=== PATIENT | female | born 1970 | race Two or more races ===

== ENCOUNTER 2018-09-02 11:02 | Inpatient (IN) | payer OTHER ==
[2018-09-02] MEDS ORDERED: D50W 25 GM/50 ML SYR IVP PRN (13:58)
--- NOTE | 2018-09-02 16:31 | GHP ---
POST ADMISSION PHYSICIAN EVALUATION AND REHABILITATION TREATMENT PLAN DATE OF ADMISSION: 09/02/2018 DATE OF EVALUATION: 08/21/2018 TIME OF EVALUATION: 1430 REFERRING FACILITY: [facility] REFERRING PHYSICIAN: Dr. Sean Martines CONSULTING PHYSICIANS: I believe there was consultation with the hospitalist service and with the diabetes management service. REHABILITATION DIAGNOSIS: Debility, status post subarachnoid hemorrhage. IMPAIRMENT GROUP: 1.9 ETIOLOGIC DIAGNOSIS: Other stroke. DATE OF ONSET: 08/09/2018 DATE OF SURGERY: 08/10/2018 HISTORY OF PRESENT ILLNESS: This patient was admitted to [facility] on 08/09/2018, with a severe headache and nausea. Head CT showed a subarachnoid hemorrhage consistent with a ruptured anterior communicating artery aneurysm. She underwent a left pterional craniotomy and had clip ligation of the aneurysm. She required an endoventricular drain on 07/2018, which was subsequently removed. Hospital course was complicated by mild cerebrovascular spasm, which did not require intervention. She had aspiration pneumonia and acute respiratory failure. She had Clostridium difficile diarrhea and was treated with vancomycin with resolution of symptoms. There was a left upper extremity DVT due to a PICC line and she had a new diagnosis of diabetes mellitus, type 2. STUDIES AND LABS IN THE HOSPITAL: I do not have a comprehensive list. Most recent labs to which I have access were as follows: CBC on 09/01/2018, showed mild anemia with a hemoglobin of 11.5, hematocrit was normal at 35.7, white blood cell count and platelet counts were normal. Basic metabolic profile on the same date was normal, though her creatinine was low at 0.41. Magnesium on 09/01/2018, was normal at 1.6. Phosphorus was normal at 4.5. Prothrombin time was normal at 12.8 with an INR of 1. PTT was normal at 32.3. Hemoglobin A1c was determined during the course of her hospitalization and was 13.3. PRECAUTIONS: She is a fall risk and she has aspiration and seizure precautions. ACTIVE COMORBIDITIES: She has the tier 2 comorbidity of C difficile, though has been treated. She has the tier 3 comorbidities of morbid obesity and diabetes mellitus. PAST MEDICAL HISTORY: 1. Kidney stone. 2. Lung nodule. 3. UTI. 4. Herpes labialis. 5. Diabetes mellitus, type 2. PAST SURGICAL HISTORY: She has had a section and a bronchoscopy. PRE-HOSPITAL MEDICATIONS: I do not have a list. She was remotely taking metformin. ADMISSION MEDICATIONS: 1. Acetaminophen 650 mg p.o. q.6 hours p.r.n. 2. Atorvastatin 40 mg p.o. daily. 3. Insulin sliding scale. 4. Insulin NPH 15 units twice daily with meals. 5. Levetiracetam 1000 mg p.o. twice daily. 6. Metformin 500 mg p.o. twice daily with meals. ALLERGIES: There are no known drug allergies. PSYCHOSOCIAL HISTORY: She lives with her son. There are no steps to enter. She is a nonsmoker and has used occasional alcohol. 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 FAMILY HISTORY: Noncontributory. REVIEW OF SYSTEMS: She denies difficulty swallowing; vision changes; numbness, tingling or weakness of the extremities; or headache. She denies cough or dyspnea. She denies nausea, vomiting, constipation, or diarrhea. She had diarrhea, which has resolved. She denies dysuria or urinary frequency. She denies joint pain or joint swelling. She denies skin rash or skin breakdown. Otherwise, a 10-point review of systems is negative. PHYSICAL EXAMINATION: VITAL SIGNS: Blood pressure is 98/70, heart rate is 112 , respiratory rate is 16, oxygen saturation is 96% on room air, temperature is 36.5 degrees centigrade. Her weight is 72.8 kg for a body mass index of 34.7. GENERAL: This is an obese woman sitting up in a chair, cooperative and in no acute distress. HEENT: Extraocular movements are intact. Pupils are equal, round, and reactive to light. Mucous membranes are moist. Dentition is in good condition. She has a crowded airway, Mallampati class 4. NECK: Supple. HEART: She is mildly tachycardic. There is a regular rate and rhythm with no murmurs, rubs, or gallops. LUNGS: Clear to auscultation bilaterally. ABDOMEN : Soft, nontender, nondistended with normoactive bowel sounds and no hepatosplenomegaly. EXTREMITIES: There is no cyanosis, clubbing, or edema. NEUROLOGIC: She is alert and oriented x3. She appears to have normal language function. Cranial nerves 2-12 are grossly intact. There is no focal weakness. Sensation is intact to light touch. Deep tendon reflexes are 2+ bilaterally at the biceps, patellar, and Achilles tendons. There is no pronator drift. [id number] testing is normal. CURRENT LEVEL OF FUNCTION PER THE PREADMISSION SCREEN: Regarding diet, feeding , and swallowing, she was on a regular diet with thin liquids. She was taking single bites with a slow rate and was assessed to have mild dysphagia. Grooming was done standby assist. Dressing upper body required standby assist and lower body required minimal assist. Toileting required standby assist. Bed mobility required standby assist with the head of the bed elevated. Transfers were done with contact guard assist. She used a front-wheeled walker. Her Hwang balance inventory was 32/56. Endurance was fair. She walked 100-200 feet on level surfaces using a front-wheeled walker with contact guard assist. Regarding communication, she was assessed to have severe cognitive and communication impairment and she was using a log book. On today's exam, there is no significant change from the preadmission screen. IMPRESSION: This is a 47-year-old woman who suffered an aneurysmal subarachnoid hemorrhage. It was treated with craniotomy, ligation and clipping of the aneurysm of the anterior communicating artery. She had multiple hospital complications, including aspiration pneumonia, Clostridium difficile colitis, issues with glycemic control, need for an intraventricular drain which was placed and removed, and left upper extremity deep venous thrombosis due to a peripherally inserted central catheter line. She has been medically stabilized after approximately 3 weeks in the hospital and is appropriate for inpatient rehabilitation. Her goal is to complete a rehabilitation stay and then return home with her family. For a safe discharge, she will need to achieve independence with eating and grooming; modified independence for dressing, toileting, transfers and for ambulation with the least restrictive device. She will need to achieve modified independence for 1 flight of stairs. She will need to tolerate a regular diet. She will need to have insight into her deficits and she will need to use compensatory strategies effectively. She may continue to require supervision for bathing and assistance for household management, meals and shopping. She will have therapy with physical therapy, occupational therapy, and speech and language pathology for 60 minutes per day for each discipline on 5-7 days of the week. Her expected duration of stay is 7-10 days. It is anticipated that upon discharge, she will continue to benefit from home health services, including nursing, speech and language pathology, occupational therapy and physical therapy. Additionally, she will likely benefit from a brain injury support group. PLAN: 1. Debility, status post subarachnoid hemorrhage from aneurysmal bleed of the anterior communicating artery treated with clip ligation. PT and OT to optimize mobility and activities of daily living toward the independent to modified independent level. 2. Cognitive impairment. Assessment and treatment per Speech and Language Pathology. 3. Diabetes mellitus, type 2. She was started on metformin on 08/31/2018. She was treated with 70/30 insulin, as well as insulin sliding scale, and this was transitioned to NPH at 15 mg b.i.d. starting yesterday afternoon. She has received supplemental insulin for a total of 51 units of insulin on 09/01/2018. I will increase her metformin from 500 mg b.i.d. to 1000 mg b.i.d. starting this afternoon. I will decrease her scheduled insulin from 15 mg of NPH b.i.d. to 10 units of NPH b.i.d. I will continue sliding scale with insulin lispro. There will be a dietary consult. Possibly, she can be on only orals and not insulin by the time she discharges. 4. Clostridium difficile colitis has been fully treated with vancomycin. She will be monitored for recurrence of diarrhea, especially with titration of metformin. 5. Prophylaxis. She was on subcutaneous heparin during her hospitalization. Upper extremity DVT was due to PICC line and does not necessitate prophylaxis. Otherwise, subcutaneous heparin was not continued on discharge. She will be observed for improvement in mobility. If she has impaired mobility, then prophylaxis will be resumed. FOLLOWUP: She is to follow up with neurosurgeon, Dr. Sean Martines, in approximately 1 month for a postop check. Additionally, she will need to follow up with her primary care provider. Copy requested to: Dr. Martines /[id number]/MODL MTDD
[2018-09-02] MEDS ORDERED: INSULIN NPH HUMAN 100 UNITS/ML SYR SC SCH (17:30)
[2018-09-02] MEDS ORDERED: INSULIN REGULAR HUMAN 100 UNIT/ML UNIT SC SCH (17:30)
[2018-09-02] MEDS: INSULIN LISPRO 100 UNIT/ML SC SCH (17:34)
[2018-09-02] MEDS: INSULIN NPH HUMAN 100 UNITS/ML SYR SC SCH (17:53)
[2018-09-02] MEDS: metFORMIN HCL 500 MG TAB PO SCH (17:54)
[2018-09-02] MEDS ORDERED: metFORMIN HCL 500 MG TAB PO SCH (18:00)
[2018-09-02] MEDS: levETIRAcetam 500 MG TAB PO SCH (19:53)
[2018-09-03] MEDS: ACETAMINOPHEN 325 MG TAB PO PRN (02:41)
[2018-09-03] MEDS: INSULIN LISPRO 100 UNIT/ML SC SCH ×3 (08:14→17:26)
[2018-09-03] MEDS: INSULIN NPH HUMAN 100 UNITS/ML SYR SC SCH (08:21)
[2018-09-03] MEDS: ATORVASTATIN CALCIUM 40 MG TAB PO SCH (08:21)
[2018-09-03] MEDS: metFORMIN HCL 500 MG TAB PO SCH ×2 (08:22→17:28)
[2018-09-03] MEDS: levETIRAcetam 500 MG TAB PO SCH ×2 (08:22→22:08)
[2018-09-03 09:12] LABS: PLATELET COUNT 255 10^3/uL (150-400)
--- NOTE | 2018-09-03 09:59 | SOAPPROG ---
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 * Has good mobility. * Continue PT and OT to optimize mobility and activities of daily living toward the independent to modified independent level. Cognitive impairment. Assessment and treatment per Speech and Language Pathology. Diabetes mellitus, type 2. She was started on metformin on 08/31/2018. She was treated with 70/30 insulin, as well as insulin sliding scale, and this was transitioned to NPH at 15 mg b.i.d. starting yesterday afternoon. She received supplemental insulin for a total of 51 units of insulin on 09/01/2018. * Increase metformin from 500 mg b.i.d. to 1000 mg b.i.d. starting afternoon of 09/02/2018. Decreased scheduled insulin from 15 mg of NPH b.i.d. to 10 units of NPH b.i.d. Continue sliding scale with insulin lispro. * Dietary consult. * Blood sugars running lower than inpatient target overnight 09/02/2018 - 2017; fasting 109. Received 10 U NPH morning of 09/03/2018. Discontinued NPH. Continue to monitor. Anemia, stable on labs 09/03/2018. Clostridium difficile colitis has been fully treated with vancomycin. She will be monitored for recurrence of diarrhea, especially with titration of metformin. Prophylaxis. She was on subcutaneous heparin during her hospitalization. Upper extremity DVT was due to PICC line and does not necessitate prophylaxis. Otherwise, subcutaneous heparin was not continued on discharge. She will be observed for improvement in mobility. If she has impaired mobility, then prophylaxis will be resumed. FOLLOWUP: She is to follow up with neurosurgeon, Dr. Sean Martines, in approximately 1 month for a postop check. Additionally, she will need to follow up with her primary care provider. 09/03/18 10:58 Objective: Vital Signs Temp Pulse Resp BP Pulse Ox 36.7 C 101 H 16 92/66 L 94 09/03/18 06:32 09/03/18 06:32 09/03/18 06:32 09/03/18 06:32 09/03/18 06:32 Laboratory Results 09/03/18 07:40 09/02/18 09/03/18 09/04/18 05:59 05:59 05:59 Intake Total 350 Output Total 1100 Balance -750 ICD10 Worksheet Patient Problems: Problems Problem Status Onset DM2 (diabetes mellitus, type 2) Acute Subarachnoid hemorrhage Acute - ICD10 Problem Qualifiers (1) Subarachnoid hemorrhage (2) DM2 (diabetes mellitus, type 2)
[2018-09-04] MEDS: ATORVASTATIN CALCIUM 40 MG TAB PO SCH (08:12)
[2018-09-04] MEDS: levETIRAcetam 500 MG TAB PO SCH ×2 (08:12→20:15)
[2018-09-04] MEDS: metFORMIN HCL 500 MG TAB PO SCH ×2 (08:12→17:44)
[2018-09-04] MEDS: INSULIN LISPRO 100 UNIT/ML SC SCH ×3 (09:51→18:39)
--- NOTE | 2018-09-04 14:23 | SOAPPROG ---
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 * Has good mobility. Has ambulated greater than 1000 ft with no assistive device. * Continue PT and OT to optimize mobility and activities of daily living toward the independent to modified independent level. Cognitive impairment. * Moderate to severe deficits to attention, communication, executive function, judgment/safety, memory orientation, and problem solving/reasoning. * Expressive and receptive aphasia. * Continue Speech and Language Pathology. Diabetes mellitus, type 2. She was started on metformin on 08/31/2018. She was treated with 70/30 insulin, as well as insulin sliding scale, and this was transitioned to NPH at 15 mg b.i.d. starting yesterday afternoon. She received supplemental insulin for a total of 51 units of insulin on 09/01/2018. * Increase metformin from 500 mg b.i.d. to 1000 mg b.i.d. starting afternoon of 09/02/2018. Decreased scheduled insulin from 15 mg of NPH b.i.d. to 10 units of NPH b.i.d. Continue sliding scale with insulin lispro. * Dietary consult. * Blood sugars running lower than inpatient target overnight 09/02/2018 - 2017; fasting 109. Received 10 U NPH morning of 09/03/2018. Discontinued NPH. Continue to monitor. * Adequate control 09/04/2018 on metformin alone. Anemia, stable on labs 09/03/2018. Clostridium difficile colitis has been fully treated with vancomycin. She will be monitored for recurrence of diarrhea, especially with titration of metformin. Prophylaxis. She was on subcutaneous heparin during her hospitalization. Upper extremity DVT was due to PICC line and does not necessitate prophylaxis. Otherwise, subcutaneous heparin was not continued on discharge. She will be observed for improvement in mobility. If she has impaired mobility, then prophylaxis will be resumed. FOLLOWUP: She is to follow up with neurosurgeon, Dr. Sean Martines, in approximately 1 month for a postop check. Additionally, she will need to follow up with her primary care provider. 09/04/18 14:19 Subjective: No complaints. Sleeping okay. Not in pain. No cough or dyspnea. She does not feel lightheaded when she stands up. Objective: Vital Signs Temp Pulse Resp BP Pulse Ox 36.6 C 106 H 18 85/63 L 97 09/04/18 08:00 09/04/18 08:00 09/04/18 08:00 09/04/18 08:00 09/04/18 08:00 Laboratory Results 09/03/18 07:40 09/03/18 07:40 09/03/18 09/04/18 09/05/18 05:59 05:59 05:59 Intake Total 350 1440 Output Total 1100 600 Balance -750 840 Physical Exam - Physical Exam General Appearance: WD/WN, alert, no apparent distress, obese Respiratory: No respiratory distress, No accessory muscle use Cardiac/Chest: tachycardia Skin: normal color, warm/dry Neuro/Psych: alert, normal mood/affect, motor weakness ICD10 Worksheet Patient Problems: Problems Problem Status Onset DM2 (diabetes mellitus, type 2) Acute Subarachnoid hemorrhage Acute - ICD10 Problem Qualifiers (1) Subarachnoid hemorrhage (2) DM2 (diabetes mellitus, type 2)
[2018-09-05] MEDS: levETIRAcetam 500 MG TAB PO SCH ×2 (07:35→21:36)
[2018-09-05] MEDS: metFORMIN HCL 500 MG TAB PO SCH ×2 (07:36→17:24)
[2018-09-05] MEDS: ATORVASTATIN CALCIUM 40 MG TAB PO SCH (07:36)
[2018-09-05] MEDS: INSULIN LISPRO 100 UNIT/ML SC SCH ×3 (07:36→17:53)
--- NOTE | 2018-09-05 15:54 | PDOREHIP ---
Admission [facility] - Admission - 3 Day Assessment Period Admission Date/Day 1: 09/02/18 Day 2: 09/03/18 Day 3: 09/04/18 - Active Diagnoses Comorbidities and Co-existing Conditions at Admission: 75243. DM (e.g. diabetic retinopathy, nephropathy, and neuropathy) - Skin Conditions Unhealed Pressure Ulcer (1 or more/Stage 1 or >)-Admission: 0. No # Stage 1 Pressure Ulcers-Admission: 0 # Stage 2 Pressure Ulcers-Admission: 0 # Stage 3 Pressure Ulcers-Admission: 0 # Stage 4 Pressure Ulcers-Admission: 0 # Unstageable Pressure Ulcers (Non-remove Dress)-Admission: 0 # Unstageable Pressure Ulcers (Slough/Eschar)-Admission: 0 # Unstageable Pressure Ulcers (Deep Tissue Injury)-Admission: 0
--- NOTE | 2018-09-05 15:56 | SOAPPROG ---
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 * Has good mobility. Has ambulated greater than 1000 ft with no assistive device. * Continue PT and OT to optimize mobility and activities of daily living toward the independent to modified independent level. Cognitive impairment. * Moderate to severe deficits to attention, communication, executive function, judgment/safety, memory orientation, and problem solving/reasoning. * Expressive and receptive aphasia. * Continue Speech and Language Pathology. Diabetes mellitus, type 2. She was started on metformin on 08/31/2018. She was treated with 70/30 insulin, as well as insulin sliding scale, and this was transitioned to NPH at 15 mg b.i.d. starting yesterday afternoon. She received supplemental insulin for a total of 51 units of insulin on 09/01/2018. * Increase metformin from 500 mg b.i.d. to 1000 mg b.i.d. starting afternoon of 09/02/2018. Decreased scheduled insulin from 15 mg of NPH b.i.d. to 10 units of NPH b.i.d. Continue sliding scale with insulin lispro. * Dietary consult. * Blood sugars running lower than inpatient target overnight 09/02/2018 - 2017; fasting 109. Received 10 U NPH morning of 09/03/2018. Discontinued NPH. Continue to monitor. * Adequate control as of 09/05/2018 on metformin alone, and rare supplemental insulin per sliding scale. Anemia, stable on labs 09/03/2018. Clostridium difficile colitis has been fully treated with vancomycin. She will be monitored for recurrence of diarrhea, especially with titration of metformin. Prophylaxis. She was on subcutaneous heparin during her hospitalization. Upper extremity DVT was due to PICC line and does not necessitate prophylaxis. Otherwise, subcutaneous heparin was not continued on discharge. She will be observed for improvement in mobility. If she has impaired mobility, then prophylaxis will be resumed. FOLLOWUP: She is to follow up with neurosurgeon, Dr. Sean Martines, in approximately 1 month for a postop check. Additionally, she will need to follow up with her primary care provider. 09/05/18 15:55 Subjective: No complaints. Sleeping well. Not in pain. No cough or dyspnea, no fevers or chills. Objective: Vital Signs Temp Pulse Resp BP Pulse Ox 36.7 C 110 H 19 109/76 96 09/05/18 07:37 09/05/18 07:37 09/05/18 07:37 09/05/18 07:37 09/05/18 07:37 Laboratory Results 09/03/18 07:40 09/03/18 07:40 09/04/18 09/05/18 09/06/18 05:59 05:59 05:59 Intake Total 1440 2049 Output Total 600 Balance 840 2049 Physical Exam - Physical Exam General Appearance: WD/WN, alert, no apparent distress, obese Respiratory: No respiratory distress, No accessory muscle use Skin: normal color, warm/dry Neuro/Psych: alert, normal mood/affect, oriented x 3, No abnormal gait ICD10 Worksheet Patient Problems: Problems Problem Status Onset DM2 (diabetes mellitus, type 2) Acute Subarachnoid hemorrhage Acute - ICD10 Problem Qualifiers (1) Subarachnoid hemorrhage (2) DM2 (diabetes mellitus, type 2)
[2018-09-05] MEDS: ACETAMINOPHEN 325 MG TAB PO PRN (21:36)
[2018-09-06] MEDS: metFORMIN HCL 500 MG TAB PO SCH ×2 (08:21→17:27)
[2018-09-06] MEDS: ATORVASTATIN CALCIUM 40 MG TAB PO SCH (08:21)
[2018-09-06] MEDS: levETIRAcetam 500 MG TAB PO SCH ×2 (08:21→21:03)
[2018-09-06] MEDS: INSULIN LISPRO 100 UNIT/ML SC SCH ×3 (08:22→17:29)
--- NOTE | 2018-09-06 13:50 | SOAPPROG ---
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 * Initial functional independence measure is 85 on 09/06/2018. Independent with mobility and activities of daily living. Has ambulated greater than 1000 ft with no assistive device. * Continue PT and OT to optimize mobility and activities of daily living toward the independent to modified independent level. Cognitive impairment. * Moderate to severe deficits to attention, communication, executive function, judgment/safety, memory orientation, and problem solving/reasoning. * Expressive and receptive aphasia. * Continue Speech and Language Pathology. Diabetes mellitus, type 2. She was started on metformin on 08/31/2018. She was treated with 70/30 insulin, as well as insulin sliding scale, and this was transitioned to NPH at 15 mg b.i.d. starting yesterday afternoon. She received supplemental insulin for a total of 51 units of insulin on 09/01/2018. * Increase metformin from 500 mg b.i.d. to 1000 mg b.i.d. starting afternoon of 09/02/2018. Decreased scheduled insulin from 15 mg of NPH b.i.d. to 10 units of NPH b.i.d. Continue sliding scale with insulin lispro. * Dietary consult. * Blood sugars running lower than inpatient target overnight 09/02/2018 - 2017; fasting 109. Received 10 U NPH morning of 09/03/2018. Discontinued NPH. Continue to monitor. * Adequate control as of 09/05/2018 on metformin alone, and rare supplemental insulin per sliding scale. Anemia, stable on labs 09/03/2018. Tachycardia. Unclear etiology. Normal TSH. May be related to anemia. Has been improving. Clostridium difficile colitis has been fully treated with vancomycin. She will be monitored for recurrence of diarrhea, especially with titration of metformin. Prophylaxis. She was on subcutaneous heparin during her hospitalization. Upper extremity DVT was due to PICC line and does not necessitate prophylaxis. Otherwise, subcutaneous heparin was not continued on discharge. She will be observed for improvement in mobility. If she has impaired mobility, then prophylaxis will be resumed. DISPOSITION: Attended staffing, 15 min. Discussed with case management, nursing, dietitian, PT, OT, [employer]. Lives at home with her 22-year-old son who is a out of the house much of the time. Plans to discharge to her brother's home where there will be more supervision. Discharge date set for 09/08/2018. FOLLOWUP: She is to follow up with neurosurgeon, Dr. Sean Martines, in approximately 1 month for a postop check. Additionally, she will need to follow up with her primary care provider. 09/06/18 13:41 Objective: Vital Signs Temp Pulse Resp BP Pulse Ox 36.5 C 10 L 16 107/76 98 09/06/18 08:13 09/06/18 08:13 09/06/18 08:13 09/06/18 08:13 09/06/18 08:13 Laboratory Results 09/03/18 07:40 09/03/18 07:40 09/05/18 09/06/18 09/07/18 05:59 05:59 05:59 Intake Total 2049 1950 Balance 2049 1949 - Time Spent With Patient Time Spent With Patient: Greater than 35 min floor time today, including more than 50% of time in coordination of care during staffing meeting, and counseling patient. Physical Exam - Physical Exam General Appearance: WD/WN, alert, no apparent distress, obese Respiratory: normal breath sounds, No crackles, No rhonchi, No wheezing Cardiac/Chest: regular rate, rhythm, tachycardia, No edema, No JVD Skin: normal color, warm/dry Neuro/Psych: no motor/sensory deficits, alert, normal mood/affect, oriented x 3 ICD10 Worksheet Patient Problems: Problems Problem Status Onset DM2 (diabetes mellitus, type 2) Acute Subarachnoid hemorrhage Acute - ICD10 Problem Qualifiers (1) Subarachnoid hemorrhage (2) DM2 (diabetes mellitus, type 2)
[2018-09-07] MEDS: INSULIN LISPRO 100 UNIT/ML SC SCH ×2 (08:45→11:44)
[2018-09-07] MEDS: levETIRAcetam 500 MG TAB PO SCH ×2 (08:50→19:55)
[2018-09-07] MEDS: ATORVASTATIN CALCIUM 40 MG TAB PO SCH (08:50)
[2018-09-07] MEDS: metFORMIN HCL 500 MG TAB PO SCH ×2 (08:50→17:40)
--- NOTE | 2018-09-07 12:55 | PDOREHIP ---
Admission [facility] - Admission - 3 Day Assessment Period Admission Date/Day 1: 09/02/18 Day 2: 09/03/18 Day 3: 09/04/18 - Active Diagnoses Comorbidities and Co-existing Conditions at Admission: 68817. None of the Above Discharge [facility] - Discharge - 3 Day Assessment Period 2 Days Prior to Anticipated Discharge Date: 09/06/18 1 Day Prior to Anticipated Discharge Date: 09/07/18 Anticipated Discharge Date: 09/08/18 - Discharge Skin Conditions Unhealed Pressure Ulcer (1 or more/Stage 1 or >)-Discharge: 0. No # Stage 1 Pressure Ulcers-Discharge: 0 # Stage 2 Pressure Ulcers-Discharge: 0 # of These Stage 2 Pressure Ulcers Present on Admission: 0 # Stage 3 Pressure Ulcers-Discharge: 0 # of These Stage 3 Pressure Ulcers Present on Admission: 0 # Stage 4 Pressure Ulcers-Discharge: 0 # of These Stage 4 Pressure Ulcers Present on Admission: 0 # Unstageable Pressure Ulcers (Non-remove Dress)-Discharge: 0 # These Unstageable Pressure Ulcers (NRD)-Present on Admit: 0 # Unstageable Pressure Ulcers (Slough/Eschar)-Discharge: 0 # These Unstageable Pressure Ulcers(Slough) Present on Admit: 0 # Unstageable Pressure Ulcers (Deep Tissue Injury)-Discharge: 0 # These Unstageable Pressure Ulcers (DTI) Present on Admit: 0
--- NOTE | 2018-09-07 13:53 | SOAPPROG ---
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 * Initial functional independence measure is 85 on 09/06/2018. Independent with mobility and activities of daily living. Has ambulated greater than 1000 ft with no assistive device. * Advanced to independent in her room and on the unit 24 hr a day starting 09/07. * Continue PT and OT to optimize mobility and activities of daily living toward the independent to modified independent level. Cognitive impairment. * Moderate to severe deficits to attention, communication, executive function, judgment/safety, memory orientation, and problem solving/reasoning. * Expressive and receptive aphasia. * Continue Speech and Language Pathology. Diabetes mellitus, type 2. She was started on metformin on 08/31/2018. She was treated with 70/30 insulin, as well as insulin sliding scale, and this was transitioned to NPH at 15 mg b.i.d. starting yesterday afternoon. She received supplemental insulin for a total of 51 units of insulin on 09/01/2018. * Increase metformin from 500 mg b.i.d. to 1000 mg b.i.d. starting afternoon of 09/02/2018. Decreased scheduled insulin from 15 mg of NPH b.i.d. to 10 units of NPH b.i.d. Continue sliding scale with insulin lispro. * Dietary consult. * Blood sugars running lower than inpatient target overnight 09/02/2018 - 2017; fasting 109. Received 10 U NPH morning of 09/03/2018. Discontinued NPH. Continue to monitor. * Adequate control as of 09/05/2018 on metformin alone. Discontinue sliding scale insulin starting 09/07/2018. Anemia, stable on labs 09/03/2018. Tachycardia. Unclear etiology. Normal TSH. May be related to anemia. Has been improving. Clostridium difficile colitis has been fully treated with vancomycin. She will be monitored for recurrence of diarrhea, especially with titration of metformin. Prophylaxis. She was on subcutaneous heparin during her hospitalization. Upper extremity DVT was due to PICC line and does not necessitate prophylaxis. Otherwise, subcutaneous heparin was not continued on discharge. She will be observed for improvement in mobility. If she has impaired mobility, then prophylaxis will be resumed. DISPOSITION: Lives at home with her 22-year-old son who is a out of the house much of the time. Plans to discharge to her brother's home where there will be more supervision. Discharge date set for 09/08/2018. Will have home [employer]. Not ready to drive or return to work due to cognitive issues. FOLLOWUP: She is to follow up with neurosurgeon, Dr. Sean Martines, in approximately 1 month for a postop check. Additionally, she will need to follow up with her primary care provider. 09/07/18 13:51 Subjective: No complaints. Sleeping well. Denies fevers, chills, cough, dyspnea. Not in pain. Objective: Vital Signs Temp Pulse Resp BP Pulse Ox 36.9 C 110 H 16 98/65 L 95 09/07/18 08:00 09/07/18 08:00 09/07/18 08:00 09/07/18 08:00 09/07/18 08:00 Laboratory Results 09/03/18 07:40 09/03/18 07:40 09/06/18 09/07/18 09/08/18 05:59 05:59 05:59 Intake Total 1950 540 Balance 1950 540 Physical Exam - Physical Exam General Appearance: WD/WN, alert, no apparent distress, obese Respiratory: No respiratory distress, No accessory muscle use Cardiac/Chest: No edema Skin: normal color, warm/dry Neuro/Psych: alert, normal mood/affect ICD10 Worksheet Patient Problems: Problems Problem Status Onset DM2 (diabetes mellitus, type 2) Acute Subarachnoid hemorrhage Acute - ICD10 Problem Qualifiers (1) Subarachnoid hemorrhage (2) DM2 (diabetes mellitus, type 2)
[2018-09-08 07:16] VITALS: BP 87/57
[2018-09-08] MEDS: metFORMIN HCL 500 MG TAB PO SCH (07:44)
[2018-09-08] MEDS: levETIRAcetam 500 MG TAB PO SCH (07:44)
[2018-09-08] MEDS: ATORVASTATIN CALCIUM 40 MG TAB PO SCH (07:45)
--- NOTE | 2018-09-08 13:42 | GDS ---
DISCHARGE DIAGNOSIS: Debility, status post subarachnoid hemorrhage, craniotomy and aneurysmal clipping. DISCHARGE DIAGNOSIS: Debility, status post subarachnoid hemorrhage, craniotomy and aneurysmal clipping. OTHER DISCHARGE DIAGNOSES: 1. Cognitive impairment. 2. Diabetes mellitus type 2. COMPLICATIONS: There were none. CONSULTATIONS: There were none. PROCEDURES: There were none. HISTORY AND HOSPITAL COURSE: This patient was admitted from [facility]. She had presented there with severe headache and nausea. A head CT showed a subarachnoid hemorrhage consistent with a ruptured anterior communicating artery aneurysm. She had a left pterional craniotomy and clip ligation of the aneurysm. She required an endoventricular drain for several days. She had mild cerebral vasospasm which did not require intervention. She had aspiration pneumonia and acute respiratory failure. She had Clostridium difficile diarrhea, which was treated with a full course of vancomycin. There was a left upper extremity DVT due to a PICC line. She had a new diagnosis of diabetes mellitus type 2. She was medically stabilized and appropriate for inpatient rehabilitation. She did well in rehabilitation, especially regarding mobility and activities of daily living. She soon was independent with activities of daily living and was ambulating greater than 1000 feet with no assistive device. She was allowed to be independent in her room and on the unit 24 hours a day starting 09/07/2018. She had cognitive impairment. She was found to have moderate to severe deficits to attention, communication, executive function, judgment/safety, memory, orientation and problem solving/reasoning. She also had a mild expressive and receptive aphasia. Regarding diabetes mellitus type 2, she had been on insulin and used a total of 51 units on the day before her admission to inpatient rehabilitation. She was started on metformin which was titrated to 1000 mg twice daily and ultimately insulin was discontinued. Her fasting blood sugar on the day of discharge was 101, the previous day it was 137 and otherwise in recent days her blood sugar range was from 87 to 155. She had postsurgical anemia. CBC was repeated on 09/03/2018, and her anemia was stable with a hemoglobin of 11 and hematocrit of 34.2. She was noted to have tachycardia. This was gradually resolving. Her heart rate had been measured as fast as 123. On the day of discharge, her heart rate was 99. TSH was checked and was normal. Rhythm was regular. EKG was not done. Regarding Clostridium difficile colitis she had no recurrence of diarrhea. DISCHARGE PLAN: Condition upon discharge is good. ACTIVITY: Ad richelle but she should have supervision for safety with any cognitive tasks, and she is not ready for driving or return to work. DIET: Diabetic, consistent carbohydrates of 1800 kilocalories per day. MEDICATIONS UPON DISCHARGE: 1. Atorvastatin 40 mg p.o. daily. 2. Levetiracetam 1000 mg p.o. twice daily. 3. Metformin 1000 mg p.o. twice daily. ISSUES TO BE ADDRESSED AT FOLLOWUP: 1. Cognitive impairment. She will have home Speech Therapy, and she can follow up with her primary care provider regarding her progress. 2. Status post aneurysmal clipping. She will follow up with neurosurgeon, Dr. Sean Martines on 09/29/2018. 3. Diabetes mellitus. Hemoglobin A1c had been 13 in the hospital. She appears to have excellent control on metformin alone. She can follow up with her primary care provider. Greater than 30 minutes were spent on this discharge including medication reconciliation, coordination of care, and counseling of patient. Copy requested to: Sean Martines MD /[id number]/MODL MTDD
== END 2018-09-08 15:18 | disposition home health service (06) | DRG 950 ==
LOC: BREH 13:00
PROVIDERS: ADMIT Internal Medicine; ATTEND Internal Medicine
PROC: F0636ZZ Communicative/Cognitive Integration Skills Treatment of Neurological System - Whole Body (ICD-10-PCS; principal; 2018-09-02)
PROC: F08Z7ZZ Vocational Activities and Functional Community or Work Reintegration Skills Treatment (ICD-10-PCS; principal; 2018-09-02)
PROC: F07M3ZZ Motor Function Treatment of Musculoskeletal System - Whole Body (ICD-10-PCS; principal; 2018-09-02)
DX: Z48.811 Encounter for surgical aftercare following surgery on the nervous system (principal); I69.091 Dysphagia following nontraumatic subarachnoid hemorrhage; I69.010 Attention and concentration deficit following nontraumatic subarachnoid hemorrhage; I69.014 Frontal lobe and executive function deficit following nontraumatic subarachnoid hemorrhage; I69.011 Memory deficit following nontraumatic subarachnoid hemorrhage; I69.018 Other symptoms and signs involving cognitive functions following nontraumatic subarachnoid hemorrhage; I69.020 Aphasia following nontraumatic subarachnoid hemorrhage; E11.9 Type 2 diabetes mellitus without complications; Z79.4 Long term (current) use of insulin; Z79.84 Long term (current) use of oral hypoglycemic drugs; E66.01 Morbid (severe) obesity due to excess calories; Z68.34 Body mass index [BMI] 34.0-34.9, adult; D64.89 Other specified anemias; R00.0 Tachycardia, unspecified
CPT/HCPCS: 92507-GN; 92523-GN; 97110-GP; 97112-GP; 97116-GP; 97161-GP; 97166-GO; 97530-GO; 97535-GO; G0515-GO; J1815